=== PATIENT | male | born 1980 | race Caucasian/White ===

== ENCOUNTER 2016-10-14 03:24 | Emergency (ER) | payer MEDICAID ==
[~2016-10-14] VITALS: Ht 188 cm; Wt 110.0 kg
[~2016-10-14 03:24] MED LIST: ATOR40TA49 PO; CYCL-36 PO; LORA10TA7 PO; OMPR20CCR PO; TOBR.3%O LEFT EYE
[2016-10-14 03:31] VITALS: BP 134/63; PULSE 78; RESP 18; TEMP 98.4; O2SAT 100
[2016-10-14] MEDS ORDERED: LORA-361 PO (03:41)
[2016-10-14] MEDS ORDERED: NEXI20CA PO (03:41)
--- NOTE | 2016-10-14 03:54 | PD ---
HPI Chief Complaint: Psychiatric Symptoms Time Seen by Provider: 03:44 Travel History International Travel<30 days: No Contact w/Intl Traveler<30days: No Traveled to known affect area: No History of Present Illness HPI Patient comes in under a Lentz act after contacting his and telling her that if she did not come home he would kill himself. Patient denies any suicidal or homicidal ideations. Patient denies any history of suicide attempts. Patient states she was just wanting to speak with his . Denies any medical concerns currently. Denies any chest pain, shortness breath, nausea , vomiting, diarrhea, abdominal pain, or fevers. PFSH Past Medical History High Cholesterol: Yes Diminished Hearing: No GERD: Yes Musculoskeletal: Yes (STATES HYPEREXTENDED LT SHOULDER 2000) Tetanus Vaccination: < 5 Years Past Surgical History Ear Surgery: Yes (tubes a as child) Tonsillectomy: Yes (child) Other Surgery: Yes (ganglion cyst right great toe age 8) Social History Alcohol Use: No (rarely) Tobacco Use: Yes (1 ppd) Substance Use: No Allergies-Medications (Allergen,Severity, Reaction): Coded Allergies: Morphine (Verified Allergy, Mild, 11/04/12) Reported Meds & Prescriptions Reported Meds & Active Scripts Active Reported Claritin (Loratadine) 10 Mg Tab 10 Mg PO DAILY Nexium (Esomeprazole DR) 20 Mg Capdr 20 Mg PO DAILY Review of Systems Except as stated in HPI: all other systems reviewed are Neg Physical Exam Narrative GENERAL: Well-developed, overly nourished, in no acute distress, and non-ill appearing. SKIN: Warm and dry. HEAD: Atraumatic. Normocephalic. EYES: Pupils equal and round. EOMI. No scleral icterus. No injection or drainage. ENT: No nasal bleeding or discharge. Mucous membranes pink and moist. NECK: Trachea midline. Supple. No nuclear rigidity. CARDIOVASCULAR: Regular rate and rhythm. No murmur appreciated. RESPIRATORY: No accessory muscle use. No respiratory distress. Clear to auscultation. Breath sounds equal bilaterally. MUSCULOSKELETAL: No obvious deformities. No clubbing. No cyanosis. No edema. Full range of motion. NEUROLOGICAL: Awake and alert. No obvious cranial nerve deficits. Motor grossly within normal limits. Normal speech. PSYCHIATRIC: Appropriate mood and affect; insight and judgment normal. Data Data Last Documented VS Vital Signs Date Time Temp Pulse Resp B/P Pulse Ox O2 Delivery O2 Flow Rate FiO2 10/14/16 03:31 98.4 78 18 134/63 100 Orders Complete Blood Count With Diff (10/14/16 03:35) Comprehensive Metabolic Panel (10/14/16 03:35) Psych Screen (10/14/16 03:35) Drug Screen, Random Urine (10/14/16 03:35) Alcohol (Ethanol) (10/14/16 03:35) Salicylates (Aspirin) (10/14/16 03:35) Tylenol (Acetaminophen) (10/14/16 03:35) Labs Laboratory Tests Test 10/14/16 03:45 White Blood Count 10.3 TH/MM3 Red Blood Count 5.44 MIL/MM3 Hemoglobin 17.2 GM/DL Hematocrit 48.1 % Mean Corpuscular Volume 88.5 FL Mean Corpuscular Hemoglobin 31.5 PG Mean Corpuscular Hemoglobin 35.7 % Concent Red Cell Distribution Width 13.8 % Platelet Count 186 TH/MM3 Mean Platelet Volume 10.1 FL Neutrophils (%) (Auto) 77.2 % Lymphocytes (%) (Auto) 15.1 % Monocytes (%) (Auto) 6.1 % Eosinophils (%) (Auto) 0.9 % Basophils (%) (Auto) 0.7 % Neutrophils # (Auto) 8.0 TH/MM3 Lymphocytes # (Auto) 1.6 TH/MM3 Monocytes # (Auto) 0.6 TH/MM3 Eosinophils # (Auto) 0.1 TH/MM3 Basophils # (Auto) 0.1 TH/MM3 CBC Comment DIFF FINAL Differential Comment Sodium Level 141 MEQ/L Potassium Level 4.3 MEQ/L Chloride Level 109 MEQ/L Carbon Dioxide Level 22.9 MEQ/L Anion Gap 9 MEQ/L Blood Urea Nitrogen 10 MG/DL Creatinine 1.00 MG/DL Estimat Glomerular Filtration 84 ML/MIN Rate Random Glucose 108 MG/DL Calcium Level 8.8 MG/DL Total Bilirubin 0.4 MG/DL Aspartate Amino Transf 25 U/L (AST/SGOT) Alanine Aminotransferase 43 U/L (ALT/SGPT) Alkaline Phosphatase 84 U/L Total Protein 7.8 GM/DL Albumin 4.5 GM/DL Salicylates Level 4.9 MG/DL Acetaminophen Level LESS THAN 2.0 MCG/ML Ethyl Alcohol Level LESS THAN 3 MG/DL MDM Medical Decision Making Medical Screen Exam Complete: Yes Emergency Medical Condition: Yes Differential Diagnosis Homicidal, suicidal, medical clearance, other Narrative Course Patient was seen and examined. Labs were obtained and reviewed. Patient medically cleared for further treatment and evaluation by psych. Final disposition per psych. Diagnosis Primary Impression: Medical clearance for psychiatric admission Condition: Stable Marek Denise Oct 14, 2016 03:54
[2016-10-14 03:55] LABS: BASOPHIL # 0.1 TH/MM3 (0-0.2); BASOPHIL % 0.7 % (0.0-2.0); EOSINOPHIL # 0.1 TH/MM3 (0-0.4); EOSINOPHIL % 0.9 % (0.0-4.0); HEMATOCRIT 48.1 % (39.0-51.0); HEMO FLAGS DIFF FINAL; LYMPH % 15.1 % (9.0-44.0); LYMPHOCYTE # 1.6 TH/MM3 (1.0-4.8); MEAN CELL VOLUME 88.5 FL (80.0-100.0); MEAN CORPUSCULAR HEMOGLOBIN 31.5 PG (27.0-34.0); MEAN CORPUSCULAR HGB CONC 35.7 % (32.0-36.0); MONO % 6.1 % (0.0-8.0); NEUT % 77.2 % (16.0-70.0); PLATELET COUNT 186 TH/MM3 (150-450); RED BLOOD COUNT 5.44 MIL/MM3 (4.50-5.90); RED CELL DISTRIBUTION WIDTH 13.8 % (11.6-17.2); WHITE BLOOD COUNT 10.3 TH/MM3 (4.0-11.0)
[2016-10-14 04:15] LABS: ALKALINE PHOSPHATASE 84 U/L (45-117); TOTAL BILIRUBIN ADULT 0.4 MG/DL (0.2-1.0)
[2016-10-14 04:19] LABS: ACETAMINOPHEN LESS THAN 2.0 MCG/ML (10.0-30.0); ALT (GPT) 43 U/L (12-78); ANION GAP 9 MEQ/L (5-15); AST (GOT) 25 U/L (15-37); BICARBONATE 22.9 MEQ/L (21.0-32.0); BLOOD UREA NITROGEN 10 MG/DL (7-18); CHLORIDE 109 MEQ/L (98-107); GLOMERULAR FILTRATION RATE 84 ML/MIN (>89); POTASSIUM 4.3 MEQ/L (3.5-5.1); SODIUM (NA) 141 MEQ/L (136-145)
[2016-10-14 05:08] LABS: AMPHETAMINE, URINE NEG (NEG); BARBITURATES, URINE NEG (NEG); COCAINE, URINE NEG (NEG)
[2016-10-14 06:41] VITALS: BP 159/67; PULSE 68; RESP 18; O2SAT 100
[2016-10-14 10:31] VITALS: BP 153/75; PULSE 79; RESP 20; TEMP 97.8; O2SAT 98
[2016-10-14 15:09] VITALS: BP 155/88; PULSE 62; RESP 18; O2SAT 98
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
[2016-12-25] MEDS ORDERED: PRED10PA2 PO (22:56)
== END 2016-10-14 15:42 | disposition home or self-care (01) ==
LOC: NEPA 03:24 → NEPJ 15:42
DX: F43.29 Adjustment disorder with other symptoms (principal); F17.210 Nicotine dependence, cigarettes, uncomplicated; Z88.5 Allergy status to narcotic agent
CPT/HCPCS: 80053; 80307; 85025; 99285